=== PATIENT | female | born 1940 | race Caucasian/White ===

== ENCOUNTER → 2017-09-20 | Outpatient (CLI) | payer MEDICARE, OTHER ==
[2015-10-09 17:30] VITALS: BP 134/84
[~2017-09-20] MED LIST: COUMADIN PO; DIOVAN 80MG80 MG PO; HCTZ PO; LANTUS SOLOS100 U/ML SC; NOVOLOG FLEX100 U/ML SC; TYLENOL WITH CO1 TA1 PO; ZYLOPRIM 300MG300 MG PO
[2017-09-20 18:12] LABS: BASO # 0.1 (0.02-0.10); EOS # 0.3 (0.04-0.40); EOS % 2.6 % (1.0-5.0); HEMATOCRIT 46.4 % (37.0-47.0); HEMOGLOBIN 15.1 g/dL (12.5-16.0); LYMPH# 2.8 (1.50-4.00); MEAN CELL VOLUME 98 fl (78-100); MEAN CORPUSCULAR HEMOGLOBIN 32 pg (27-31); MEAN CORPUSCULAR HGB CONC 33 g/dL (33-37); MEAN PLATELET VOLUME 11.2 fl (7.4-10.4); MONO # 0.9 (0.20-0.80); PLATELET COUNT 333 K/mm3 (130-400); RED BLOOD COUNT 4.73 M/mm3 (4.10-5.30)
[2017-09-20 18:23] LABS: ALBUMIN 3.8 g/dL (3.5-5.0); BUN/CREATININE RATIO 16.8 (6.0-26.0); CALCIUM 10.6 mg/dL (8.4-10.2); POTASSIUM 4.5 mmol/L (3.6-5.0); TOTAL BILIRUBIN 0.5 mg/dL (0.2-1.3)
[2017-09-20 19:50] LABS: ERYTHROCYTE SEDIMENTATION RATE 28 mm/hr (0-30)
== END ==
LOC: RAD 16:34 → LAB 16:34
PROVIDERS: Internal Medicine
DX: M17.12 Unilateral primary osteoarthritis, left knee (principal); I10 Essential (primary) hypertension; E78.2 Mixed hyperlipidemia; E11.9 Type 2 diabetes mellitus without complications; M10.9 Gout, unspecified; R20.2 Paresthesia of skin

== ENCOUNTER → 2017-09-21 | Outpatient (CLI) | payer MEDICARE, OTHER ==
[2015-10-09 17:30] VITALS: BP 134/84
[2017-09-21 11:19] LABS: URINE APPEARANCE CLEAR; URINE BILIRUBIN NEGATIVE (NEGATIVE); URINE BLOOD NEGATIVE (NEGATIVE); URINE COLOR YELLOW; URINE GLUCOSE NEGATIVE (NEGATIVE); URINE KETONE NEGATIVE (NEGATIVE); URINE LEUKOCYTE ESTERASE NEGATIVE (NEGATIVE); URINE NITRATE NEGATIVE (NEGATIVE); URINE PROTEIN(semi-quant) TRACE mg/dL (NEGATIVE); URINE UROBILINOGEN NORMAL (NORMAL)
== END ==
LOC: LAB 10:19
PROVIDERS: Internal Medicine
DX: E11.9 Type 2 diabetes mellitus without complications (principal); Z12.11 Encounter for screening for malignant neoplasm of colon

== ENCOUNTER → 2017-09-27 | Outpatient (CLI) | payer MEDICARE, OTHER ==
[2015-10-09 17:30] VITALS: BP 134/84
== END ==
LOC: LAB 09:35
DX: E11.9 Type 2 diabetes mellitus without complications (principal); Z12.11 Encounter for screening for malignant neoplasm of colon

== ENCOUNTER → 2018-02-16 | Outpatient (CLI) | payer MEDICARE, OTHER ==
[2015-10-09 17:30] VITALS: BP 134/84
== END ==
LOC: LAB 14:47
PROVIDERS: Internal Medicine
DX: Z51.81 Encounter for therapeutic drug level monitoring (principal); Z79.01 Long term (current) use of anticoagulants

== ENCOUNTER → 2018-03-21 | Outpatient (CLI) | payer MEDICARE, OTHER ==
[2015-10-09 17:30] VITALS: BP 134/84
[2018-03-21 11:41] LABS: PROTHROMBIN TIME 36.9 SECONDS (9.0-12.0)
== END ==
LOC: LAB 11:08
PROVIDERS: Internal Medicine
DX: Z51.81 Encounter for therapeutic drug level monitoring (principal); Z79.01 Long term (current) use of anticoagulants

== ENCOUNTER → 2018-04-06 | Outpatient (CLI) | payer MEDICARE, OTHER ==
[2015-10-09 17:30] VITALS: BP 134/84
[2018-04-06 14:23] LABS: PROTHROMBIN TIME 23.9 SECONDS (9.0-12.0)
== END ==
LOC: LAB 13:53
PROVIDERS: Internal Medicine
DX: Z51.81 Encounter for therapeutic drug level monitoring (principal); Z79.01 Long term (current) use of anticoagulants

== ENCOUNTER → 2018-06-23 | Outpatient (CLI) | payer MEDICARE, OTHER ==
[2015-10-09 17:30] VITALS: BP 134/84
[2018-06-23 12:05] LABS: PROTHROMBIN TIME 27.9 SECONDS (9.0-12.0)
== END ==
LOC: LAB 11:25
PROVIDERS: Internal Medicine
DX: Z51.81 Encounter for therapeutic drug level monitoring (principal); Z79.01 Long term (current) use of anticoagulants

== ENCOUNTER → 2018-07-24 | Outpatient (CLI) | payer MEDICARE, OTHER ==
[2015-10-09 17:30] VITALS: BP 134/84
[2018-07-24 12:00] LABS: PROTHROMBIN TIME 24.9 SECONDS (9.0-12.0)
== END ==
LOC: LAB 11:24
PROVIDERS: Internal Medicine
DX: Z51.81 Encounter for therapeutic drug level monitoring (principal); Z79.01 Long term (current) use of anticoagulants

== ENCOUNTER → 2018-09-18 | Outpatient (CLI) | payer MEDICARE, OTHER ==
[2015-10-09 17:30] VITALS: BP 134/84
[2018-09-18 11:39] LABS: PROTHROMBIN TIME 26.8 SECONDS (9.0-12.0)
== END ==
LOC: LAB 11:02
PROVIDERS: Internal Medicine
DX: Z51.81 Encounter for therapeutic drug level monitoring (principal)

== ENCOUNTER → 2018-10-27 | Outpatient (CLI) | payer MEDICARE, OTHER ==
[2015-10-09 17:30] VITALS: BP 134/84
== END ==
LOC: LAB 09:55
PROVIDERS: Internal Medicine
DX: Z51.81 Encounter for therapeutic drug level monitoring (principal); Z79.01 Long term (current) use of anticoagulants

== ENCOUNTER → 2018-11-30 | Outpatient (CLI) | payer MEDICARE, OTHER ==
[2015-10-09 17:30] VITALS: BP 134/84
[2018-11-30 11:22] LABS: PROTHROMBIN TIME 21.8 SECONDS (9.0-12.0)
== END ==
LOC: LAB 10:52
PROVIDERS: Internal Medicine
DX: Z51.81 Encounter for therapeutic drug level monitoring (principal); Z79.01 Long term (current) use of anticoagulants

== ENCOUNTER → 2019-01-25 | Outpatient (CLI) | payer MEDICARE, OTHER ==
[2015-10-09 17:30] VITALS: BP 134/84
[2019-01-25 10:56] LABS: PROTHROMBIN TIME 27.7 SECONDS (9.0-12.0)
== END ==
LOC: LAB 10:36
PROVIDERS: Internal Medicine
DX: Z51.81 Encounter for therapeutic drug level monitoring (principal); Z79.01 Long term (current) use of anticoagulants

== ENCOUNTER 2019-04-26 16:42 | Emergency (ER) | payer MEDICARE, OTHER ==
[~2019-04-26] VITALS: Ht 172.7 cm; Wt 127.3 kg
[2019-04-26] MEDS ORDERED: JANTOVEN4 MG PO (17:01)
[2019-04-26] MEDS ORDERED: LOSARTAN POTAS100 MG PO (17:02)
[2019-04-26] MEDS ORDERED: NORVASC 5MG5 MG/TAB PO (17:03)
[2019-04-26 18:00] LABS: EOS # 0.2 (0.04-0.40); HEMATOCRIT 45.2 % (37.0-47.0); HEMOGLOBIN 14.8 g/dL (12.5-16.0); MEAN CELL VOLUME 99 fl (78-100); MEAN CORPUSCULAR HEMOGLOBIN 33 pg (27-31); MEAN CORPUSCULAR HGB CONC 33 g/dL (33-37); MEAN PLATELET VOLUME 11.4 fl (7.4-10.4); MONO # 1.1 (0.20-0.80); NEU # 6.5 (1.40-6.50); PLATELET COUNT 295 K/mm3 (130-400); RED BLOOD COUNT 4.56 M/mm3 (4.10-5.30); RED CELL DISTRIBUTION WIDTH 14.1 % (11.5-14.5); WHITE BLOOD COUNT 9.9 K/mm3 (4.8-10.8)
[2019-04-26 18:04] LABS: ALBUMIN 3.8 g/dL (3.4-4.8); POTASSIUM 4.5 mmol/L (3.5-5.1)
[2019-04-26 18:05] LABS: CALCIUM 10.3 mg/dL (8.3-10.5)
[2019-04-26 18:06] LABS: TOTAL PROTEIN 7.8 g/dL (6.2-8.1)
[2019-04-26 18:08] LABS: TOTAL BILIRUBIN 0.6 mg/dL (0.2-1.2)
[2019-04-26 18:22] LABS: URINE APPEARANCE HAZY; URINE BILIRUBIN NEGATIVE (NEGATIVE); URINE BLOOD NEGATIVE (NEGATIVE); URINE COLOR YELLOW; URINE GLUCOSE NEGATIVE (NEGATIVE); URINE KETONE NEGATIVE (NEGATIVE); URINE LEUKOCYTE ESTERASE NEGATIVE (NEGATIVE); URINE NITRATE NEGATIVE (NEGATIVE); URINE PROTEIN(semi-quant) TRACE mg/dL (NEGATIVE); URINE UROBILINOGEN NORMAL (NORMAL)
[2019-04-26 18:23] LABS: PROTHROMBIN TIME 30.7 SECONDS (9.0-12.0)
[2019-04-26 21:46] VITALS: BP 162/90
[2019-04-26] MEDS ORDERED: PERCOCET 2.5-31 EACH PO (21:52)
== END 2019-04-26 21:58 | disposition home or self-care (01) ==
LOC: ED 16:42
PROVIDERS: Nurse Practitioner Family
DX: K55.069 Acute infarction of intestine, part and extent unspecified (principal); E10.9 Type 1 diabetes mellitus without complications; I10 Essential (primary) hypertension; E78.5 Hyperlipidemia, unspecified; M10.9 Gout, unspecified; K21.9 Gastro-esophageal reflux disease without esophagitis; E66.9 Obesity, unspecified; Z68.41 Body mass index [BMI] 40.0-44.9, adult; Z79.01 Long term (current) use of anticoagulants; Z86.711 Personal history of pulmonary embolism; Z87.442 Personal history of urinary calculi; Z87.19 Personal history of other diseases of the digestive system; Z90.49 Acquired absence of other specified parts of digestive tract; Z90.710 Acquired absence of both cervix and uterus
CPT/HCPCS: J1885; J7030; Q9967

== ENCOUNTER → 2019-05-04 | Outpatient (CLI) | payer MEDICARE, OTHER ==
[2019-04-26 21:46] VITALS: BP 162/90
[~2019-05-04] MED LIST changes: +JANTOVEN4 MG PO; +LOSARTAN POTAS100 MG PO; +NORVASC 5MG5 MG/TAB PO; +PERCOCET 2.5-31 EACH PO
[2019-05-04 14:48] LABS: EOS # 0.2 (0.04-0.40); EOS % 2.5 % (1.0-5.0); HEMATOCRIT 44.1 % (37.0-47.0); HEMOGLOBIN 14.3 g/dL (12.5-16.0); LYMPH# 2.1 (1.50-4.00); MEAN CELL VOLUME 100 fl (78-100); MEAN CORPUSCULAR HEMOGLOBIN 32 pg (27-31); MEAN CORPUSCULAR HGB CONC 32 g/dL (33-37); MEAN PLATELET VOLUME 10.4 fl (7.4-10.4); MONO # 0.7 (0.20-0.80); NEU # 4.1 (1.40-6.50); PLATELET COUNT 360 K/mm3 (130-400); RED BLOOD COUNT 4.43 M/mm3 (4.10-5.30); WHITE BLOOD COUNT 7.1 K/mm3 (4.8-10.8)
[2019-05-04 15:04] LABS: ALBUMIN 3.5 g/dL (3.4-4.8); POTASSIUM 4.1 mmol/L (3.5-5.1)
[2019-05-04 15:05] LABS: CALCIUM 10.4 mg/dL (8.3-10.5)
[2019-05-04 15:06] LABS: TOTAL PROTEIN 7.5 g/dL (6.2-8.1)
[2019-05-04 15:07] LABS: PROTHROMBIN TIME 32.9 SECONDS (9.0-12.0)
[2019-05-04 15:08] LABS: TOTAL BILIRUBIN 0.6 mg/dL (0.2-1.2)
== END ==
LOC: LAB 14:31
PROVIDERS: Internal Medicine
DX: Z51.81 Encounter for therapeutic drug level monitoring (principal); E11.9 Type 2 diabetes mellitus without complications; I10 Essential (primary) hypertension; I87.2 Venous insufficiency (chronic) (peripheral); I26.99 Other pulmonary embolism without acute cor pulmonale; E78.5 Hyperlipidemia, unspecified

== ENCOUNTER → 2019-05-21 | Outpatient (CLI) | payer MEDICARE, OTHER ==
[2019-04-26 21:46] VITALS: BP 162/90
[2019-05-21 12:17] LABS: PROTHROMBIN TIME 34.2 SECONDS (9.0-12.0)
== END ==
LOC: LAB 11:28
PROVIDERS: Internal Medicine
DX: Z51.81 Encounter for therapeutic drug level monitoring (principal); I26.99 Other pulmonary embolism without acute cor pulmonale

== ENCOUNTER 2020-06-19 15:03 | Inpatient (IN) | payer MEDICARE, OTHER ==
[~2020-06-19] VITALS: Ht 172.7 cm; Wt 133.0 kg
[2020-06-19 15:26] VITALS: BP 167/93
[2020-06-19] MEDS ORDERED: DIOVAN 80MG80 MG PO (15:43)
[2020-06-19] MEDS ORDERED: WARFARIN SODIUM4 MG PO (15:44)
[2020-06-19] MEDS ORDERED: CALTRATE-600 W600 MG PO (15:46)
[2020-06-19 18:09] VITALS: BP 128/83
[2020-06-19 21:29] VITALS: BP 149/87
[2020-06-20] VITALS (7 sets, daily range): BP systolic 102–164; BP diastolic 64–109
--- NOTE | 2020-06-20 01:22 | NUR ---
Rings call light and states "I just don't feel right". Requests to have her blood sugar checked as she felt like "it was going down and I can tell when it drops". Blood sugar check was 148. Requested and given Walnut Juice to drink. Became a little nauseated but states it is subsiding and denies need for Zofran at this time. BOTTOMING MACHINE OPERATOR in to obtain vital signs.
--- NOTE | 2020-06-20 05:34 | NUR ---
Awakened by staff for vital signs and AM medications. Analgesic provided at this time to stay ahead of the pain. States no further episodes of feeling "not right" after episode last night. No further nausea.
--- NOTE | 2020-06-20 07:17 | NUR ---
Report to Ally EMANUEL.
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
--- NOTE | 2020-06-20 10:53 | NUR ---
Pt's nausea subsided. She was assisted to the chair with foot rest up. She denies discomfort. Cozar administered as ordered, now that nausea has subsided. Call light in reach. Akira Martin LPN
--- NOTE | 2020-06-20 14:28 | NUR ---
Pt had been sitting up in chair and talking on phone in good mood. Ate lunch. Assisted to bed with max A x2 using gait belt and NWB to LLE at about 1230. She again felt nauseated and vomited into emesis bag another 150 ml beige liquid with small amt. undigested foodstuff. The patient denied discomfort when asked but had facial grimmacing during transfer. She declined med. for discomfort when asked, stating "that is making my stomach upset." Verbally informed RD Nieves. Applied ice pack to L ankle, and this is elevated on pillow. Akira Martin LPN
--- NOTE | 2020-06-20 19:07 | NUR ---
Report given to oncoming shift nurseSharron. Akira Martin LPN
--- NOTE | 2020-06-20 19:09 | NUR ---
At about 1800 followed up with effectiveness of Acetaminphen 1 Gram and Zofran 4 mg ODT given about an hour earler. The patient was sitting up and smiling and reporting with surprise that the pain level is "0" and she had no n/v, and excitedly reported that she was able to enjoy a great meal. Akira Martin LPN
--- NOTE | 2020-06-20 19:50 | NUR ---
Report received from Ally MUNOZ. Rests in bed, watching TV. A/O x4. Reports pain to LLE 11/27. Denies nausea at this time. LLE with [facility] WNL. Spilint in place and leg elevated on a pillow. INT patent to [facility]. Assessment completed. Denies questions, wants or needs at this time.
--- NOTE | 2020-06-20 23:02 | NUR ---
Rests quietly with CPAP on. Tylenol 1000 MG take PO now for pain control. Denies wants or needs.
[2020-06-21] VITALS (9 sets, daily range): BP systolic 96–127; BP diastolic 61–79
--- NOTE | 2020-06-21 01:26 | NUR ---
Up to W/C and then to BR with heavy 2 person transfer. Voids shaneka clear urine. Uses grab bars to help transfer on and off toilet. Back to bed. Positions self to side lying position once back in bed while mainaining NWB states to LLE.
--- NOTE | 2020-06-21 05:02 | NUR ---
AM vital signs obtained. Requests and given PO Tylenol for pain to LLE 12/27. Takes PO Protonix at this time. Denies wants or needs.
--- NOTE | 2020-06-21 07:30 | NUR ---
Report to Nuvia EMANUEL.
[2020-06-21 08:19] LABS: EOS % 0.4 % (1.0-5.0); HEMATOCRIT 39.4 % (37.0-47.0); HEMOGLOBIN 12.6 g/dL (12.5-16.0); LYMPH# 2.7 (1.50-4.00); MEAN CELL VOLUME 101 fl (78-100); MEAN CORPUSCULAR HEMOGLOBIN 32 pg (27-31); MEAN CORPUSCULAR HGB CONC 32 g/dL (33-37); MEAN PLATELET VOLUME 10.4 fl (7.4-10.4); MONO # 1.1 (0.20-0.80); NEU # 6.6 (1.40-6.50); PLATELET COUNT 243 K/mm3 (130-400); RED BLOOD COUNT 3.89 M/mm3 (4.10-5.30); WHITE BLOOD COUNT 10.5 K/mm3 (4.8-10.8)
--- NOTE | 2020-06-21 08:20 | NUR ---
Pt moved to bedside commode with assist of 2-3. Transferred well. Moved into chair to sit up for breakfast. Upon moving to chair, pt stated that she felt nauseated. Given emesis bag. At this time, pt became unresponsive and stared at the ceiling. Breathing became gasping and irregular. No response to stimuli, and pt began to have emesis come out of mouth. Unable to palpate carotid pulse. Pushed once on pt's chest, and pt became responsive. Pulse regular and strong at this time and blood pressure 120/80. EKG obtained, Dr. Baird notified. Pt on telemetry showing a sinus rhythm. Sitting up in chair, continues to be nauseated. Eating a cracker at this time. Blood pressure now 105/67 while sitting in chair.
[2020-06-21 08:28] LABS: ALBUMIN 3.3 g/dL (3.4-4.8)
[2020-06-21 08:29] LABS: POTASSIUM 4.2 mmol/L (3.5-5.1); SODIUM 140 mmol/L (136-145)
[2020-06-21 08:30] LABS: CALCIUM 10.4 mg/dL (8.3-10.5)
[2020-06-21 08:31] LABS: GLUCOSE 115 mg/dL (65-105); TOTAL PROTEIN 6.7 g/dL (6.2-8.1)
[2020-06-21 08:32] LABS: CARBON DIOXIDE 24 mmol/L (23-31)
[2020-06-21 08:33] LABS: TOTAL BILIRUBIN 1.1 mg/dL (0.2-1.2)
[2020-06-21 08:36] LABS: AST-SGOT 34 U/L (5-34)
--- NOTE | 2020-06-21 08:36 | NUR ---
Pt back to bed. Continues to state she feels like she is going to vomit.
[2020-06-21 08:38] LABS: ALT/SGPT 35 U/L (0-55)
[2020-06-21 08:43] LABS: TROPONIN-I < 0.03 ng/mL (<0.030)
--- NOTE | 2020-06-21 09:00 | NUR ---
Assessment completed, and sensation and movement intact to left foot. Capillary refil 3 seconds.
--- NOTE | 2020-06-21 10:17 | NUR ---
Pt states that she still isn't feeling well and still feels nauseated. Pt states she doesn't really want the zofran. Told pt we could wait a little longer, but some medications are necessary to take this morning. Pt verbalizes understanding.
--- NOTE | 2020-06-21 11:37 | NUR ---
Pt took pills without difficulty or increased nausea. Continues to deny need for zofran at this time. States she "doesn't feel good, but doesn't feel bad, either". Pt resting in bed, no needs at this time. Call light in reach.
--- NOTE | 2020-06-21 15:57 | NUR ---
Pt up to bed side commode and back to bed with assist of 2-3. No incident during these transfers. Urine is very yellow. Encouraged pt to drink more fluids this afternoon.
--- NOTE | 2020-06-21 23:09 | NUR ---
Report received from Lalitha EMANUEL. Patient resting in bed with bed alarm on. TELE in place NSR, rate 86. No signs of pain or distress.
[2020-06-22 02:05] VITALS: BP 130/66
--- NOTE | 2020-06-22 04:25 | NUR ---
Up to BSC with heavy 2 assist and back to bed. No episodes of unresponsiveness. Pain level 6/10 to LLE. PRN Tylenol and PRN Miralax given at this time, along with scheduled protonix. Positioned for comfort. Denies want or needs. CPAP on.
[2020-06-22 05:52] VITALS: BP 136/75
--- NOTE | 2020-06-22 07:21 | NUR ---
Report to Mame EMANUEL.
--- NOTE | 2020-06-22 08:20 | NUR ---
patient lying in bed. shift assessment complete. patient alert and oriented x4. reports pain is a 7/10 in left lower ext. patient's left foot has cast in place. cms intact from what this nurse is able to assess around casting. patient's foot swollen. +2 edema. this nurse states to patient that foot is swollen patient states "oh i know it is swollen again today it wasn't that bad yesterday" patient's foot elevated on 2 pillows and ice applied to area. patient non weight bearing to left lower ext. patient denies any shortness of breath or difficulties breathing. patient's iv site to left ac fell out. patient's call light within reach. bed alarm on.
[2020-06-22 10:06] VITALS: BP 124/80
[2020-06-22 13:26] VITALS: BP 100/67
[2020-06-22 17:37] VITALS: BP 130/84
--- NOTE | 2020-06-22 19:10 | NUR ---
REPORT GIVEN TO JENAE LLAMAS
--- NOTE | 2020-06-22 20:00 | NUR ---
Pt was resting in bed when entering the room. Denies pain at this time. Bowel sounds noted in all 4 quads. Pt reports no concerns at this time. Call light within reach, bed in lowest position, and alarm on. Will continue to monitor.
[2020-06-22 22:01] VITALS: BP 120/73
[2020-06-23 02:05] VITALS: BP 120/80
[2020-06-23 06:11] VITALS: BP 124/70
--- NOTE | 2020-06-23 07:03 | NUR ---
Report to Mame EMANUEL.
[2020-06-23 10:09] VITALS: BP 131/77
[2020-06-23 14:20] VITALS: BP 127/77
[2020-06-23 18:15] VITALS: BP 146/79
--- NOTE | 2020-06-23 20:00 | NUR ---
Pt was sleeping in bed when entering the room. Pt is alert and oriented x4. Denies pain. Denies feeling increased pressure to left leg, minimal swelling noted. No concerns at this time, will continue to monitor. Bed in lowest postion, call light within reach.
[2020-06-23 22:00] VITALS: BP 114/62
[2020-06-24 01:41] VITALS: BP 142/77
[2020-06-24 05:57] VITALS: BP 159/76
[2020-06-24 10:20] VITALS: BP 125/79
[2020-06-24 13:51] VITALS: BP 137/73
[2020-06-24 16:40] VITALS: BP 124/65
--- NOTE | 2020-06-24 20:00 | NUR ---
Pt resting in bed when entering room. Pt reports a 10/10 pain to her left leg. Tramadol 50mg given. Pt request using the bed redd throughout the night to help with the pain. Left leg splint & BEVERLY clean and intact. Lt Leg is swollen. Pt denies feeling pressure under the splint and can wiggle all toes to the left side. No other concerns at this time. Will continue to [facility].
[2020-06-24 22:52] VITALS: BP 172/72
[2020-06-25 01:35] VITALS: BP 112/63
[2020-06-25 06:37] VITALS: BP 118/68
--- NOTE | 2020-06-25 07:00 | NUR ---
Report received from TAMMY Doty.
--- NOTE | 2020-06-25 07:27 | NUR ---
the pt uses the commode. the pt is encouraged to get into a chair for breakfast and the pt refuses and states that she will stay in bed for breakfast. the pt is educated on preventing skin breakdown. the pt is encouraged to make frequent small shifts in her position in the bed.
[2020-06-25 10:00] VITALS: BP 133/82
--- NOTE | 2020-06-25 10:10 | NUR ---
Ortho in room for f/u appointment.
[2020-06-25 14:19] VITALS: BP 123/81
--- NOTE | 2020-06-25 15:00 | NUR ---
Pt to be discharged to [facility] LOC.
== END 2020-06-25 15:48 | disposition swing bed (61) | DRG 563 ==
LOC: MED/SURG 15:03
PROVIDERS: Family Medicine; ADMIT Nurse Practitioner Family
DX: S82.842A Displaced bimalleolar fracture of left lower leg, initial encounter for closed fracture (principal); Z68.42 Body mass index [BMI] 45.0-49.9, adult; M70.62 Trochanteric bursitis, left hip; I10 Essential (primary) hypertension; M10.9 Gout, unspecified; K21.9 Gastro-esophageal reflux disease without esophagitis; I87.2 Venous insufficiency (chronic) (peripheral); E66.01 Morbid (severe) obesity due to excess calories; Z20.822 Contact with and (suspected) exposure to COVID-19; E11.9 Type 2 diabetes mellitus without complications; R11.10 Vomiting, unspecified; E78.5 Hyperlipidemia, unspecified; R55 Syncope and collapse; R53.81 Other malaise; W00.0XXA Fall on same level due to ice and snow, initial encounter; Y92.008 Other place in unspecified non-institutional (private) residence as the place of occurrence of the external cause; Z79.01 Long term (current) use of anticoagulants; Z79.4 Long term (current) use of insulin; Z86.711 Personal history of pulmonary embolism; Z86.718 Personal history of other venous thrombosis and embolism; Z90.710 Acquired absence of both cervix and uterus
CPT/HCPCS: J1650; J1815; J7512

== ENCOUNTER 2020-06-25 15:13 | Inpatient (IN) | payer MEDICARE ==
[~2020-06-25] VITALS: Ht 172.7 cm; Wt 133.0 kg
[~2020-06-25 15:13] MED LIST changes: +CALTRATE-600 W600 MG PO; +WARFARIN SODIUM4 MG PO
--- NOTE | 2020-06-25 17:30 | NUR ---
RD Bridges notified blood sugar of 432. No new orders at this time. Insulin given per sliding scale.
[2020-06-25 18:50] VITALS: BP 153/77
[2020-06-25 19:07] VITALS: BP 153/77
--- NOTE | 2020-06-25 20:00 | NUR ---
PT LEFT THIGH SWOLLEN TIGHT. PT REPORTS IT HAS BEEN THAT WAY OFF AND ON FOR YEARS.
[2020-06-26 06:12] VITALS: BP 148/83
--- NOTE | 2020-06-26 07:18 | NUR ---
Report given to Jane olvera RN
--- NOTE | 2020-06-26 07:20 | NUR ---
Report given to Jane Piedra RN
--- NOTE | 2020-06-26 08:30 | NUR ---
TRANSFER TO BEDSIDE COMMODE. HYPERVENTILATES WITH ACTIVITY. BEGINS TO FEEL DIZZY AND NAUSEOUS WHILE SITTING. RATHER THAN TRANSFER TO CHAIR FOR BREAKFAST, PATIENT CHOOSES TO RETURN TO BED. PATIENT UNABLE TO TRANSFER SELF. ATTEMPT PIVOT TRANSFER, BUT UNABLE TO STAND. UTILIZE SIT/STAND LIFT TO POSITION IN BED.
--- NOTE | 2020-06-26 17:25 | NUR ---
STAFF WITH DR MARINA'S OFFICE CALLS. PATIENT SCHEDULED FOR SURGERY TuesdayJune AT [facility]. HOLD [facility] TUESDAY. TRANSFER PATIENT TO [facility] TuesdayJune. DR MARINA WOULD LIKE [facility] HOSPITALIST TO ARRANGE TRANSFER.
--- NOTE | 2020-06-26 17:35 | NUR ---
Called [facility] to set up tentative transportation time. Paperwork will be completed on Tuesday for Physician Certification Statement for [facility]gency [facility] Service.
[2020-06-26 17:51] VITALS: BP 133/78
--- NOTE | 2020-06-26 18:11 | NUR ---
DAUGHTER CALLS FOR UPDATE AND IS PROVIDED SURGERY SCHEDULE. TRANSFER PHONE CALL TO PATIENT.
--- NOTE | 2020-06-26 20:00 | NUR ---
Pt was laying in bed when entering the room. Requesting to use the bedside commode at this time. While doing this the pt expressed her concern with the pain to her left leg and feeling light headed. Pt was incontinent at this time. Pt struggled to return to the bed, but was able to slowly reposition her hips to get in the middle of the bed. Pt reports a 7/10 pain, Tramadol 50mg was give at this time. No other concerns. Will continue to monitor. Bed in lowest postion, call light in reach, and bed alarm on.
--- NOTE | 2020-06-27 00:45 | NUR ---
Report received from Lalitha EMANUEL.
--- NOTE | 2020-06-27 01:00 | NUR ---
Patient able to roll well to her left side and bedpan placed. Voids 400mls dk shaneka clear urine. Encouraged po fluids. States she didn't drink well yesterday due to felt poorly after therapy. Tylenol and tramadol offered and given for pain left hip and kpad applied.
--- NOTE | 2020-06-27 02:24 | NUR ---
Rests quiely in bed. CPAP on.
[2020-06-27 06:13] VITALS: BP 136/77
--- NOTE | 2020-06-27 06:33 | NUR ---
Patient states "yes I did" to getting sleep this NOC.
--- NOTE | 2020-06-27 13:20 | NUR ---
pt is being moved back to bed from recliner chair at this time. pt becomes anxious and begins to hyperventilate. pt is reminded to slow down breathing. pt is eventually moved back to bed from recliner by multiple staff as pt is unable to assist while using the slideboard. the pt is settled into bed safely. respirations are now slowed and unlabored.
[2020-06-27 16:38] VITALS: BP 125/74
--- NOTE | 2020-06-27 20:15 | NUR ---
Patient rolls slowly to her left side and bedpan placed. Voids 350 mls dk shaneka concentrated urine. Good alexsander-care provided. Assisted with LLE over in bed and declines elevating on pillow, FOB elevated. HS meds along with xanax for anxiety and tylenol for pain left hip all reviewed and given. Patient appears to hyperventilate when she has to move and encouraged slow breaths. Reminded to do IS Q 1hour while awake and deep breathe due to decreased activity. States LBM 4 days ago and senokot-S 2 tabs given. States she is passing gas and bowel sounds active x 4. Does HS care at bedside with set up help and removes hearing aids. New turn pad and chux applied. Declines ice pack.
--- NOTE | 2020-06-27 23:00 | NUR ---
Patient rests with eyes closed. CPAP on.
--- NOTE | 2020-06-28 03:27 | NUR ---
Patient has been resting with eyes closed until now. Assisted onto bedpan and voids. States she's been resting well. Tramadol 50 mg given for left hip/thigh pain 09/27. "It's not bad".
--- NOTE | 2020-06-28 05:30 | NUR ---
Patient awakened for med and returns to resting with eyes closed.
[2020-06-28 05:36] VITALS: BP 128/72
--- NOTE | 2020-06-28 07:20 | NUR ---
Report received from Mone Avery RN and care assumed. Pt resting in bed, denies needs or concerns at this time. Call light in reach, bed alarm on.
--- NOTE | 2020-06-28 12:45 | NUR ---
Pt on bed redd, states she was unable to have a BM but feels like she needs to. Encouraged pt to have Miralax since the senna was not effective. Pt educated on laxative use. Pt also complained of increased pain. Offered pt ultram or tylenol and requested tylenol at this time. Resting in bed with lunch tray. Call light in reach, no further needs.
--- NOTE | 2020-06-28 14:37 | NUR ---
Pt resting in bed, eyes closed, and no signs of distress or discomfort at this time. Call light in reach, bed alarm on.
--- NOTE | 2020-06-28 17:21 | NUR ---
Pt states that she isn't hungry currently since she ate lunch late. Blood sugar not taken at this time since she isn't going to be eating now.
[2020-06-28 18:24] VITALS: BP 110/58
--- NOTE | 2020-06-28 19:00 | NUR ---
Report received from Nuvia EMANUEL.
--- NOTE | 2020-06-28 19:18 | NUR ---
Report given to JENAE Gonsalez and care transferred at this time. Pt in bed, call light in reach.
--- NOTE | 2020-06-28 19:45 | NUR ---
Patient very anxious during turning side to side for bedpan. Encouraged slow deep breaths and does relax more. Assisted with LLE positioning over in bed and RLE heel floated on pillow-red but blanches. Does IS and best results 1999. Snack of tomato soup and crackers given and ate 100% (patient didn't eat supper). Accu check 314 prior to snack and SSI and scheduled insulin given. Reviewed voltaren gel and applied to left knee and left hip/thigh. Tramadol given for pain and ativan given for anxiety.
--- NOTE | 2020-06-28 21:00 | NUR ---
Reports gel has helped for pain.
--- NOTE | 2020-06-28 22:35 | NUR ---
Patient sobbing and reports pain 8/10 left hip/thigh. Tylenol given and assisted to reposition on side then back to bed.
--- NOTE | 2020-06-29 03:10 | NUR ---
Patient assisted onto bedpan and changed. Reports left hip pain 5/10 on pain scale and tramadol given. Has some anxiousness but less than before. Patient continues with 2-3+ edema LLE and large purple bruising to hip/thigh. Has declined pillow under LLE.
--- NOTE | 2020-06-29 04:30 | NUR ---
Patient rests with eyes closed. Respirations with ease. CPAP on.
[2020-06-29 06:09] VITALS: BP 159/74
--- NOTE | 2020-06-29 09:48 | NUR ---
REPORT RECEIVED FROM MIGUEL EMANUEL THIS AM. PATIENT WAS SITTING UP IN BED SHE IS VERY ANXIOUS AND REFUSING TO GET OUT OF BED LAST NIGHT OR UP TO CHAIR FOR BREAKFAST. PATIENT IS A HEAVY 2:1 ASSIST WITH MOVING FROM BED TO CHAIR. PATIENT DID COMPLY TO GET TO CHAIR AFTER MISSING THE BED PRICE AND WE NEEDED TO CHANGE THE LINENS. PATIENT WITH 2 STAFF ASSIST MOVED/SLID TO THE CHAIR FROM BED WITH NON-WEIGHT BEARING TO LEFT LEG. ENCOURAGED PATIENT TO USE RIGHT LEG AND BILATERAL ARMS MUCH POSSIBLE. APPEARS THAT PATIENT IS UNABLE TO SOFTWARE CONTROLS ENGINEER HER HIPS AND TRIES TO SCOOT WHICH WAS PULLING THE WET CHUX WITH HER. STAFF HAD HER ROLL TO RIGHT SIDE TO PULL OUT WET LINENS. PATIENT WAS SUCCESSFUL IN GETTING IN CHAIR. PATIENT APPEARS TO BE EXHAUSTED AND EMOTIONAL AFTER THE MOVE OVER. PATIENT IS COMPLAINING OF PAIN TO ALL OF LEFT LEG/HIP NOT JUST THE LEFT ANKLE. PATIENT REPORTS HER LEFT KNEE FEELS WORSE TODAY THAN PREVIOUSLY. OFFERED ICE TO KNEE; APPLIED LIDOCAINE PATCH AND RUBBED VOLTAREN GEL ON AREAS. PATIENT IS CURRENTLY RESTING IN CHAIR WITH LEGS ELEVATED.
--- NOTE | 2020-06-29 10:39 | NUR ---
Patient calling in staff to operate the automatic chair to raise her legs. Patient re-educated on how and she says she knows but she just can't do it and needs us to. Patient given ice bag to place on left knee and it was re-adjusted by staff for comfort. Patient is wanting to relax and has on her CPAP while in chair.
[2020-06-29 17:23] VITALS: BP 101/55
--- NOTE | 2020-06-29 19:16 | NUR ---
Report received from Lalitha EMANUEL. Patient resting supine in bed. A/O x4. Rates pain to LLE 5/10. Cast intact. CMS intact. Assessment completed. Denies wants or needs at this time. BS + and patient reports passing alot of gas.
--- NOTE | 2020-06-30 03:08 | NUR ---
Patient has been resting quietly with no signs of pain or distress. Has called for bedpan once earlier in shift. Gets anxious with rolling and repositioning. Ativan was given with HS medications along with Tramadol for pain
[2020-06-30 05:41] VITALS: BP 133/72
--- NOTE | 2020-06-30 05:49 | NUR ---
AM medications taken whole without difficulty. PRN Tylenol given at this time for pain control. Denies wants or needs at this time.
[2020-06-30 06:42] LABS: ALBUMIN 2.6 g/dL (3.4-4.8); MEAN CELL VOLUME 104 fl (78-100); MEAN CORPUSCULAR HEMOGLOBIN 33 pg (27-31); MEAN CORPUSCULAR HGB CONC 32 g/dL (33-37); MEAN PLATELET VOLUME 9.9 fl (7.4-10.4); PLATELET COUNT 448 K/mm3 (130-400); RED CELL DISTRIBUTION WIDTH 14.8 % (11.5-14.5); WHITE BLOOD COUNT 17.2 K/mm3 (4.8-10.8)
[2020-06-30 06:43] LABS: POTASSIUM 5.4 mmol/L (3.5-5.1)
[2020-06-30 06:44] LABS: CALCIUM 9.6 mg/dL (8.3-10.5)
[2020-06-30 06:45] LABS: TOTAL PROTEIN 5.9 g/dL (6.2-8.1)
[2020-06-30 06:47] LABS: TOTAL BILIRUBIN 1.8 mg/dL (0.2-1.2)
[2020-06-30 07:01] LABS: RED BLOOD COUNT 1.95 M/mm3 (4.10-5.30)
[2020-06-30 07:02] LABS: HEMATOCRIT 20.2 % (37.0-47.0); HEMOGLOBIN 6.4 g/dL (12.5-16.0)
--- NOTE | 2020-06-30 07:09 | NUR ---
Report to Julia EMANUEL.
--- NOTE | 2020-06-30 07:30 | NUR ---
critical labs reported to elly joel
[2020-06-30 08:02] LABS: HYPOCHROMIA 1+; LYMPHOCYTE 13 % (20-51); MONOCYTE 7 % (3-10); NEUTROPHILS 79 % (42-75); POLYCHROMASIA 2+
[2020-06-30 09:04] LABS: PROTHROMBIN TIME 9.1 SECONDS (9.0-12.0)
[2020-06-30 10:01] VITALS: BP 128/76
[2020-06-30 10:19] LABS: MEAN CELL VOLUME 103 fl (78-100); MEAN CORPUSCULAR HEMOGLOBIN 33 pg (27-31); MEAN CORPUSCULAR HGB CONC 32 g/dL (33-37); MEAN PLATELET VOLUME 9.9 fl (7.4-10.4); PLATELET COUNT 459 K/mm3 (130-400); RED CELL DISTRIBUTION WIDTH 14.7 % (11.5-14.5); WHITE BLOOD COUNT 15.2 K/mm3 (4.8-10.8)
[2020-06-30 10:35] LABS: RED BLOOD COUNT 1.93 M/mm3 (4.10-5.30)
[2020-06-30 10:48] LABS: HEMATOCRIT 19.9 % (37.0-47.0); HEMOGLOBIN 6.3 g/dL (12.5-16.0)
[2020-06-30 10:50] LABS: HYPOCHROMIA 1+; LYMPHOCYTE 12 % (20-51); MONOCYTE 6 % (3-10); NEUTROPHILS 80 % (42-75)
[2020-06-30 10:51] LABS: POLYCHROMASIA 2+
[2020-06-30 12:59] LABS: URINE APPEARANCE CLEAR; URINE BILIRUBIN 1+ (NEGATIVE); URINE COLOR YELLOW; URINE GLUCOSE NEGATIVE (NEGATIVE); URINE KETONE NEGATIVE (NEGATIVE); URINE PROTEIN(semi-quant) TRACE mg/dL (NEGATIVE); URINE UROBILINOGEN 1 mg/dL (NORMAL)
[2020-06-30 13:00] LABS: URINE BLOOD NEGATIVE (NEGATIVE); URINE LEUKOCYTE ESTERASE NEGATIVE (NEGATIVE); URINE NITRATE NEGATIVE (NEGATIVE)
[2020-06-30 18:00] VITALS: BP 124/68
--- NOTE | 2020-06-30 18:40 | NUR ---
JASON, MANAGER RETIREMENT FROM [facility] CALLED TO GIVE A BED NUMBER OF ROOM 343. THIS RN GIVES REPORT TO TACOS GARCIA RN. I TRIED TO CALL REPORT TO SURGICAL FLOOR AT [facility] BUT WAS TOLD THAT NO ONE WAS ABLE TO TAKE REPORT AT THIS TIME. AIMEE, CHARGE NURSE ON THE SURGICAL FLOOR AT [facility] TELLS THIS RN THAT I WILL HAVE TO CALL BACK THEY ARE IN SHIFT REPORT AT THIS TIME.
--- NOTE | 2020-06-30 19:30 | NUR ---
Report called to Aaliyah-JENAE on surgical floor at [facility] at 192, Arnold from EMS called for transfer at 193
--- NOTE | 2020-06-30 19:58 | NUR ---
EMS ARRIVES, REPORT GIVEN AND TRANSFER PAPERWORK TURNED OVER TO PARAMEDICS, PATIENT TRANSFERRED OVER TO EMS COT USING A SLIDE BOARD, PATIENT TOLERATED WELL, PERSONAL BELONGINGS SENT WITH PATIENT, INCLUDING THE ENVELOPE FROM THE [employer]AFE CONTAINING HER WALLET AND TORIBIO, PATIENT LEAVES FACILITY AT THIS TIME EN ROUTE TO [facility] WHERE SHE WILL BE A DIRECT ADMIT TO ROOM [address] CARE OF [address] MARINA FOR ORTHOPEDIC REPAIR OF HER LEFT ANKLE TOMORROW, DISCHARGED FROM FLOOR AT THIS TIME WITHOUT INCIDENT
== END 2020-06-30 19:58 | disposition short-term general hospital (02) | DRG 563 ==
LOC: MED/SURG 15:13
PROVIDERS: Physician Assistant; ADMIT Physician Assistant
DX: S82.842A Displaced bimalleolar fracture of left lower leg, initial encounter for closed fracture (principal); Z68.41 Body mass index [BMI] 40.0-44.9, adult; E87.1 Hypo-osmolality and hyponatremia; E11.9 Type 2 diabetes mellitus without complications; I10 Essential (primary) hypertension; I87.2 Venous insufficiency (chronic) (peripheral); K21.9 Gastro-esophageal reflux disease without esophagitis; M19.90 Unspecified osteoarthritis, unspecified site; E78.5 Hyperlipidemia, unspecified; Z20.822 Contact with and (suspected) exposure to COVID-19; E66.01 Morbid (severe) obesity due to excess calories; R53.81 Other malaise; S70.12XA Contusion of left thigh, initial encounter; D72.829 Elevated white blood cell count, unspecified; E87.5 Hyperkalemia; D64.9 Anemia, unspecified; Y92.008 Other place in unspecified non-institutional (private) residence as the place of occurrence of the external cause; W00.0XXA Fall on same level due to ice and snow, initial encounter; Z79.01 Long term (current) use of anticoagulants; Z79.4 Long term (current) use of insulin; Z86.711 Personal history of pulmonary embolism; Z86.718 Personal history of other venous thrombosis and embolism; Z90.710 Acquired absence of both cervix and uterus
CPT/HCPCS: J1650; J1815

== ENCOUNTER 2020-07-02 13:06 | Inpatient (IN) | payer MEDICARE, OTHER ==
[2020-07-03] MEDS ORDERED: WARFARIN SODIUM4 MG PO (14:54)
[2020-07-03] MEDS ORDERED: NORCO 325 MG-51 TA1 PO (14:55)
[2020-07-03 17:20] VITALS: BP 156/80
[2020-07-03 18:00] VITALS: BP 156/80
[2020-07-03 18:01] VITALS: BP 156/80
[2020-07-03 18:13] LABS: EOS # 0.3 (0.04-0.40); EOS % 2.4 % (1.0-5.0); HEMATOCRIT 27.6 % (37.0-47.0); HEMOGLOBIN 8.4 g/dL (12.5-16.0); LYMPH# 2.2 (1.50-4.00); MEAN CELL VOLUME 102 fl (78-100); MEAN CORPUSCULAR HEMOGLOBIN 31 pg (27-31); MEAN CORPUSCULAR HGB CONC 30 g/dL (33-37); MONO # 1.1 (0.20-0.80); NEU # 8.6 (1.40-6.50); RED BLOOD COUNT 2.72 M/mm3 (4.10-5.30); WHITE BLOOD COUNT 12.3 K/mm3 (4.8-10.8)
[2020-07-03 18:14] LABS: PLATELET COUNT 533 K/mm3 (130-400); RED CELL DISTRIBUTION WIDTH 18.6 % (11.5-14.5)
[2020-07-03 18:24] LABS: POTASSIUM 5.4 mmol/L (3.5-5.1)
[2020-07-03 18:31] LABS: PROTHROMBIN TIME 9.2 SECONDS (9.0-12.0)
[2020-07-04 06:27] VITALS: BP 127/74
[2020-07-04 17:41] VITALS: BP 156/78
[2020-07-05 06:10] VITALS: BP 157/86
[2020-07-05 17:35] VITALS: BP 125/76
[2020-07-06 06:11] VITALS: BP 159/84
[2020-07-06 17:18] VITALS: BP 128/76
[2020-07-07 06:14] VITALS: BP 133/80
[2020-07-07 18:07] VITALS: BP 131/77
[2020-07-08 06:19] VITALS: BP 127/79
[2020-07-08 17:28] VITALS: BP 127/84
[2020-07-09 05:40] VITALS: BP 132/70
[2020-07-09 10:29] LABS: HEMATOCRIT 33.8 % (37.0-47.0); HEMOGLOBIN 10.1 g/dL (12.5-16.0); MEAN CELL VOLUME 105 fl (78-100); MEAN CORPUSCULAR HEMOGLOBIN 31 pg (27-31); MEAN CORPUSCULAR HGB CONC 30 g/dL (33-37); MEAN PLATELET VOLUME 9.5 fl (7.4-10.4); PLATELET COUNT 353 K/mm3 (130-400); RED BLOOD COUNT 3.22 M/mm3 (4.10-5.30); WHITE BLOOD COUNT 11.2 K/mm3 (4.8-10.8)
[2020-07-09 10:37] LABS: POTASSIUM 4.5 mmol/L (3.5-5.1)
[2020-07-09 10:38] LABS: CALCIUM 9.1 mg/dL (8.3-10.5)
[2020-07-09 10:51] LABS: LYMPHOCYTE 11 % (20-51); MONOCYTE 8 % (3-10); NEUTROPHILS 76 % (42-75); RED CELL DISTRIBUTION WIDTH 19.6 % (11.5-14.5)
[2020-07-09 10:52] LABS: OVALOCYTES 1+
[2020-07-09 10:56] LABS: PROTHROMBIN TIME 11.4 SECONDS (9.0-12.0)
[2020-07-09 18:20] VITALS: BP 129/78
[2020-07-10 06:07] VITALS: BP 133/71
[2020-07-10 17:17] VITALS: BP 121/76
[2020-07-11 06:14] VITALS: BP 135/77
[2020-07-11 17:53] VITALS: BP 128/68
[2020-07-12 06:08] VITALS: BP 147/81
[2020-07-12 17:11] VITALS: BP 134/78
[2020-07-13 06:20] VITALS: BP 127/70
[2020-07-13 17:14] VITALS: BP 139/76
[2020-07-14 05:56] VITALS: BP 119/73
[2020-07-14 17:23] VITALS: BP 134/72
[2020-07-15 06:48] VITALS: BP 133/71
[2020-07-15 17:17] VITALS: BP 146/80
[2020-07-16 06:15] VITALS: BP 135/75
[2020-07-16 17:24] VITALS: BP 132/78
[2020-07-17 02:31] LABS: URINE WBC 0 /hpf (0-3)
[2020-07-17 02:32] LABS: URINE APPEARANCE CLEAR; URINE BILIRUBIN NEGATIVE (NEGATIVE); URINE BLOOD NEGATIVE (NEGATIVE); URINE COLOR YELLOW; URINE GLUCOSE NEGATIVE (NEGATIVE); URINE KETONE NEGATIVE (NEGATIVE); URINE LEUKOCYTE ESTERASE NEGATIVE (NEGATIVE); URINE NITRATE NEGATIVE (NEGATIVE); URINE PROTEIN(semi-quant) NEGATIVE (NEGATIVE); URINE UROBILINOGEN NORMAL (NORMAL)
[2020-07-17 06:10] VITALS: BP 131/80
[2020-07-17 06:24] LABS: HEMOGLOBIN 9.6 g/dL (12.5-16.0); MEAN CELL VOLUME 105 fl (78-100); MEAN CORPUSCULAR HEMOGLOBIN 31 pg (27-31); MEAN CORPUSCULAR HGB CONC 30 g/dL (33-37); MEAN PLATELET VOLUME 9.5 fl (7.4-10.4); RED BLOOD COUNT 3.06 M/mm3 (4.10-5.30); RED CELL DISTRIBUTION WIDTH 17.9 % (11.5-14.5); WHITE BLOOD COUNT 5.3 K/mm3 (4.8-10.8)
[2020-07-17 06:36] LABS: ALBUMIN 2.5 g/dL (3.4-4.8); POTASSIUM 4.1 mmol/L (3.5-5.1)
[2020-07-17 06:38] LABS: PROTHROMBIN TIME 21.1 SECONDS (9.0-12.0)
[2020-07-17 06:40] LABS: TOTAL BILIRUBIN 0.7 mg/dL (0.2-1.2)
[2020-07-17 06:56] LABS: PLATELET COUNT 514 K/mm3 (130-400)
[2020-07-17 06:57] LABS: NEUTROPHILS 51 % (42-75)
[2020-07-17 06:58] LABS: HYPOCHROMIA 1+; LYMPHOCYTE 28 % (20-51); MONOCYTE 9 % (3-10); POLYCHROMASIA 1+
[2020-07-17 06:59] LABS: TARGET CELLS 1+
[2020-07-17 18:14] VITALS: BP 125/80
[2020-07-18 06:07] VITALS: BP 125/74
[2020-07-18 16:23] VITALS: BP 116/70
[2020-07-19 06:11] VITALS: BP 114/64
[2020-07-19 17:20] VITALS: BP 142/85
[2020-07-20 06:19] VITALS: BP 130/73
[2020-07-20 16:40] VITALS: BP 150/78
[2020-07-21 06:15] VITALS: BP 127/76
[2020-07-21 15:44] VITALS: BP 147/89
[2020-07-22 06:14] VITALS: BP 116/72
[2020-07-22 18:13] VITALS: BP 95/66
[2020-07-23 06:04] VITALS: BP 111/68
[2020-07-23 17:09] VITALS: BP 135/81
[2020-07-24 05:15] VITALS: BP 124/79
[2020-07-24 07:47] LABS: CALCIUM 8.8 mg/dL (8.3-10.5); POTASSIUM 4.2 mmol/L (3.5-5.1)
[2020-07-24 07:49] LABS: PROTHROMBIN TIME 30.2 SECONDS (9.0-12.0)
[2020-07-24 07:53] LABS: HEMATOCRIT 35.4 % (37.0-47.0); HEMOGLOBIN 10.7 g/dL (12.5-16.0); MEAN CELL VOLUME 103 fl (78-100); MEAN CORPUSCULAR HEMOGLOBIN 31 pg (27-31); MEAN CORPUSCULAR HGB CONC 30 g/dL (33-37); MEAN PLATELET VOLUME 9.4 fl (7.4-10.4); PLATELET COUNT 569 K/mm3 (130-400); RED BLOOD COUNT 3.43 M/mm3 (4.10-5.30); RED CELL DISTRIBUTION WIDTH 17.2 % (11.5-14.5); WHITE BLOOD COUNT 5.3 K/mm3 (4.8-10.8)
[2020-07-24 07:54] LABS: LYMPHOCYTE 37 % (20-51); MONOCYTE 12 % (3-10); NEUTROPHILS 47 % (42-75)
[2020-07-24 07:55] LABS: TARGET CELLS 1+
[2020-07-24 18:02] VITALS: BP 130/71
[2020-07-25 05:15] VITALS: BP 132/72
[2020-07-25 17:20] VITALS: BP 152/85
[2020-07-26 05:23] VITALS: BP 121/72
[2020-07-26 18:35] VITALS: BP 108/77
[2020-07-26 22:00] VITALS: BP 103/72
[2020-07-27 06:29] VITALS: BP 132/75
[2020-07-27 10:34] LABS: PROTHROMBIN TIME 43.3 SECONDS (9.0-12.0)
[2020-07-27 16:55] VITALS: BP 132/74
[2020-07-28 06:42] VITALS: BP 131/79
[2020-07-28 17:21] VITALS: BP 147/89
[2020-07-29 05:40] LABS: HEMATOCRIT 37.3 % (37.0-47.0); HEMOGLOBIN 11.5 g/dL (12.5-16.0); MEAN CELL VOLUME 103 fl (78-100); MEAN CORPUSCULAR HEMOGLOBIN 32 pg (27-31); MEAN CORPUSCULAR HGB CONC 31 g/dL (33-37); MEAN PLATELET VOLUME 9.8 fl (7.4-10.4); PLATELET COUNT 425 K/mm3 (130-400); RED BLOOD COUNT 3.64 M/mm3 (4.10-5.30); RED CELL DISTRIBUTION WIDTH 16.6 % (11.5-14.5)
[2020-07-29 05:47] VITALS: BP 133/82
[2020-07-29 05:52] LABS: ALBUMIN 2.8 g/dL (3.4-4.8)
[2020-07-29 05:53] LABS: POTASSIUM 4.2 mmol/L (3.5-5.1)
[2020-07-29 05:54] LABS: CALCIUM 9.1 mg/dL (8.3-10.5)
[2020-07-29 05:55] LABS: TOTAL PROTEIN 6.3 g/dL (6.2-8.1)
[2020-07-29 05:57] LABS: TOTAL BILIRUBIN 0.6 mg/dL (0.2-1.2)
[2020-07-29 06:24] LABS: LYMPHOCYTE 50 % (20-51); MONOCYTE 15 % (3-10); NEUTROPHILS 31 % (42-75); TARGET CELLS 1+
[2020-07-29 07:26] LABS: PROTHROMBIN TIME 31.4 SECONDS (9.0-12.0)
[2020-07-29 17:39] VITALS: BP 128/81
[2020-07-30 05:58] VITALS: BP 120/71
[2020-07-30 17:13] VITALS: BP 141/87
[2020-07-31 06:26] VITALS: BP 124/73
[2020-07-31 17:12] VITALS: BP 129/66
[2020-08-01 06:09] VITALS: BP 122/75
[2020-08-01 17:18] VITALS: BP 124/77
[2020-08-02 05:21] VITALS: BP 125/71
[2020-08-02 17:07] VITALS: BP 134/78
[2020-08-02 20:19] LABS: EOS # 0.2 (0.04-0.40); EOS % 3.6 % (1.0-5.0); HEMATOCRIT 38.9 % (37.0-47.0); LYMPH# 2.2 (1.50-4.00); MEAN CELL VOLUME 102 fl (78-100); MEAN CORPUSCULAR HEMOGLOBIN 31 pg (27-31); MEAN CORPUSCULAR HGB CONC 31 g/dL (33-37); MEAN PLATELET VOLUME 10.5 fl (7.4-10.4); MONO # 0.7 (0.20-0.80); NEU # 3.2 (1.40-6.50); PLATELET COUNT 292 K/mm3 (130-400); RED BLOOD COUNT 3.83 M/mm3 (4.10-5.30); RED CELL DISTRIBUTION WIDTH 16.2 % (11.5-14.5); WHITE BLOOD COUNT 6.4 K/mm3 (4.8-10.8)
[2020-08-02 20:35] LABS: PROTHROMBIN TIME 18.7 SECONDS (9.0-12.0)
[2020-08-02 21:22] LABS: ERYTHROCYTE SEDIMENTATION RATE 43 mm/hr (0-30)
[2020-08-03 06:14] VITALS: BP 131/76
[2020-08-03 18:00] VITALS: BP 148/84
[2020-08-04 06:26] VITALS: BP 124/68
[2020-08-04 17:24] VITALS: BP 156/92
[2020-08-05 05:42] VITALS: BP 150/78
[2020-08-05 08:18] LABS: PROTHROMBIN TIME 19.6 SECONDS (9.0-12.0)
[2020-08-05 17:28] VITALS: BP 126/72
[2020-08-05 20:23] VITALS: BP 158/83
[2020-08-06 06:28] VITALS: BP 111/72
[2020-08-06 18:20] VITALS: BP 126/80
[2020-08-07 05:49] VITALS: BP 124/73
[2020-08-07 17:08] VITALS: BP 128/86
[2020-08-08 05:56] VITALS: BP 113/71
[2020-08-08 17:06] VITALS: BP 154/74
[2020-08-09 05:36] VITALS: BP 133/73
[2020-08-09 17:09] VITALS: BP 138/82
[2020-08-10 06:22] VITALS: BP 126/60
[2020-08-10 17:20] VITALS: BP 137/85
[2020-08-11 05:47] VITALS: BP 127/74
[2020-08-11 07:10] LABS: EOS # 0.4 (0.04-0.40); EOS % 5.1 % (1.0-5.0); HEMATOCRIT 39.3 % (37.0-47.0); HEMOGLOBIN 12.2 g/dL (12.5-16.0); LYMPH# 1.9 (1.50-4.00); MEAN CELL VOLUME 101 fl (78-100); MEAN CORPUSCULAR HEMOGLOBIN 31 pg (27-31); MEAN CORPUSCULAR HGB CONC 31 g/dL (33-37); MEAN PLATELET VOLUME 10.7 fl (7.4-10.4); MONO # 0.7 (0.20-0.80); NEU # 4.5 (1.40-6.50); PLATELET COUNT 275 K/mm3 (130-400); RED BLOOD COUNT 3.89 M/mm3 (4.10-5.30); RED CELL DISTRIBUTION WIDTH 15.7 % (11.5-14.5); WHITE BLOOD COUNT 7.5 K/mm3 (4.8-10.8)
[2020-08-11 07:31] LABS: POTASSIUM 4.1 mmol/L (3.5-5.1)
[2020-08-11 07:32] LABS: CALCIUM 9.2 mg/dL (8.3-10.5)
[2020-08-11 16:55] VITALS: BP 169/81
[2020-08-12 05:50] VITALS: BP 127/75
[2020-08-12 17:24] VITALS: BP 122/69
[2020-08-14 05:50] VITALS: BP 126/73
[2020-08-14] MEDS ORDERED: LANTUS SOLOS100 U/ML SQ (10:14)
== END 2020-08-14 12:15 | disposition home health service (06) | DRG 560 ==
LOC: MED/SURG 13:06
PROVIDERS: Family Medicine; Internal Medicine; Physician Assistant; ADMIT Nurse Practitioner Family
DX: S82.842D Displaced bimalleolar fracture of left lower leg, subsequent encounter for closed fracture with routine healing (principal); Z68.42 Body mass index [BMI] 45.0-49.9, adult; L03.116 Cellulitis of left lower limb; R53.81 Other malaise; E66.01 Morbid (severe) obesity due to excess calories; E11.9 Type 2 diabetes mellitus without complications; M10.9 Gout, unspecified; S70.02XD Contusion of left hip, subsequent encounter; M19.90 Unspecified osteoarthritis, unspecified site; K21.9 Gastro-esophageal reflux disease without esophagitis; D64.9 Anemia, unspecified; I87.2 Venous insufficiency (chronic) (peripheral); I10 Essential (primary) hypertension; K59.00 Constipation, unspecified; E78.5 Hyperlipidemia, unspecified; W19.XXXD Unspecified fall, subsequent encounter; Z79.01 Long term (current) use of anticoagulants; Z79.4 Long term (current) use of insulin; Z79.891 Long term (current) use of opiate analgesic; Z86.711 Personal history of pulmonary embolism; Z86.718 Personal history of other venous thrombosis and embolism; Z90.710 Acquired absence of both cervix and uterus
CPT/HCPCS: J1815; L4386

== ENCOUNTER → 2020-08-21 | Outpatient (CLI) | payer MEDICARE ==
[2020-08-14 05:50] VITALS: BP 126/73
[~2020-08-21] MED LIST changes: +LANTUS SOLOS100 U/ML SQ; +NORCO 325 MG-51 TA1 PO
[2020-08-21 11:29] LABS: EOS # 0.1 (0.04-0.40); EOS % 1.4 % (1.0-5.0); HEMATOCRIT 44.4 % (37.0-47.0); LYMPH# 1.8 (1.50-4.00); MEAN CELL VOLUME 99 fl (78-100); MEAN CORPUSCULAR HEMOGLOBIN 31 pg (27-31); MEAN CORPUSCULAR HGB CONC 32 g/dL (33-37); MEAN PLATELET VOLUME 10.3 fl (7.4-10.4); MONO # 0.5 (0.20-0.80); NEU # 4.9 (1.40-6.50); PLATELET COUNT 455 K/mm3 (130-400); RED BLOOD COUNT 4.48 M/mm3 (4.10-5.30); RED CELL DISTRIBUTION WIDTH 14.8 % (11.5-14.5); WHITE BLOOD COUNT 7.2 K/mm3 (4.8-10.8)
[2020-08-21 11:33] LABS: ALBUMIN 3.5 g/dL (3.4-4.8)
[2020-08-21 11:34] LABS: CALCIUM 10.4 mg/dL (8.3-10.5)
[2020-08-21 11:37] LABS: TOTAL BILIRUBIN 0.4 mg/dL (0.2-1.2)
[2020-08-21 12:34] LABS: ERYTHROCYTE SEDIMENTATION RATE 52 mm/hr (0-30)
== END ==
LOC: LAB 11:01
PROVIDERS: Internal Medicine
DX: M10.9 Gout, unspecified (principal); I10 Essential (primary) hypertension; K90.9 Intestinal malabsorption, unspecified; E78.2 Mixed hyperlipidemia; E11.9 Type 2 diabetes mellitus without complications

== ENCOUNTER → 2020-09-09 | Outpatient (CLI) | payer MEDICARE ==
[2020-08-14 05:50] VITALS: BP 126/73
== END ==
LOC: VAS 13:43 → RAD 14:00 → VAS 14:00
DX: L97.322 Non-pressure chronic ulcer of left ankle with fat layer exposed (principal)

== ENCOUNTER → 2021-09-14 | Outpatient (CLI) | payer MEDICARE ==
[2021-09-14 11:10] LABS: PROTHROMBIN TIME 10.4 SECONDS (9.0-12.0)
== END ==
LOC: LAB 10:07
PROVIDERS: Internal Medicine
DX: I26.99 Other pulmonary embolism without acute cor pulmonale (principal)

== ENCOUNTER → 2021-09-23 | Outpatient (CLI) | payer MEDICARE ==
[2021-09-23 12:03] LABS: PROTHROMBIN TIME 12.7 SECONDS (9.0-12.0)
== END ==
LOC: LAB 11:15
PROVIDERS: Internal Medicine
DX: I26.99 Other pulmonary embolism without acute cor pulmonale (principal)

== ENCOUNTER → 2021-10-06 | Outpatient (CLI) | payer MEDICARE ==
[2021-10-06 12:28] LABS: PROTHROMBIN TIME 20.2 SECONDS (9.0-12.0)
== END ==
LOC: LAB 11:00
PROVIDERS: Internal Medicine
DX: I26.99 Other pulmonary embolism without acute cor pulmonale (principal)

== ENCOUNTER → 2022-05-26 | Outpatient (CLI) | payer MEDICARE ==
[2022-05-26 10:53] LABS: PROTHROMBIN TIME 23.5 SECONDS (9.0-12.0)
== END ==
LOC: LAB 10:10
PROVIDERS: Internal Medicine
DX: I26.99 Other pulmonary embolism without acute cor pulmonale (principal)

== ENCOUNTER → 2022-05-31 | Outpatient (CLI) | payer MEDICARE ==
[2022-05-31 11:37] LABS: PROTHROMBIN TIME 17.4 SECONDS (9.0-12.0)
== END ==
LOC: LAB 11:08
PROVIDERS: Internal Medicine
DX: I26.99 Other pulmonary embolism without acute cor pulmonale (principal)

== ENCOUNTER → 2022-06-22 | Outpatient (CLI) | payer MEDICARE ==
[2022-06-22 12:11] LABS: PROTHROMBIN TIME 20.5 SECONDS (9.0-12.0)
== END ==
LOC: LAB 11:30
PROVIDERS: Internal Medicine
DX: I26.99 Other pulmonary embolism without acute cor pulmonale (principal)

== ENCOUNTER → 2022-07-26 | Outpatient (CLI) | payer MEDICARE ==
[2022-07-26 12:03] LABS: PROTHROMBIN TIME 24.2 SECONDS (9.0-12.0)
== END ==
LOC: LAB 11:30
PROVIDERS: Internal Medicine
DX: I26.99 Other pulmonary embolism without acute cor pulmonale (principal)

== ENCOUNTER → 2023-07-07 | Outpatient (CLI) | payer MEDICARE ==
[2023-07-07 14:33] LABS: PROTHROMBIN TIME 21.2 SECONDS (9.0-12.0)
== END ==
LOC: LAB 13:36
PROVIDERS: Internal Medicine
DX: I26.99 Other pulmonary embolism without acute cor pulmonale (principal)

== ENCOUNTER → 2023-08-01 | Outpatient (CLI) | payer MEDICARE ==
[2023-08-01 10:46] LABS: PROTHROMBIN TIME 24.4 SECONDS (9.0-12.0)
== END ==
LOC: LAB 10:05
PROVIDERS: Internal Medicine
DX: I26.99 Other pulmonary embolism without acute cor pulmonale (principal)